=== PATIENT | female | born 1960 | race Hispanic/Latino ===

== ENCOUNTER 2018-07-16 20:18 | Emergency (ER) | payer OTHER ==
[2018-07-16] MEDS ORDERED: NACL 0.9% 1000 ML 1,000 ML IV ONE (20:43)
[2018-07-16 21:15] LABS: Hematocrit 40.4 % (30.3-42.9); Hemoglobin 13.8 gm/dl (10.1-14.3); Mean Corpuscular HGB Conc 34 % (30-34); Mean Corpuscular Volume 86 fl (79-97); Platelet Count 323 K/mm3 (140-440); Red Blood Count 4.68 M/mm3 (3.65-5.03); Red Cell Distribution Width 13.5 % (13.2-15.2)
[2018-07-16 22:03] LABS: Albumin 4.3 g/dL (3.9-5); BUN/Creatinine Ratio 26; Blood Urea Nitrogen 13 mg/dL (7-17); Calcium 9.1 mg/dL (8.4-10.2); Hemolysis Index 3
[2018-07-16 22:06] LABS: Alanine Aminotransferase < 5 units/L (7-56)
[2018-07-16 22:32] LABS: Basophils % (Manual) 0 % (0.0-1.8); Total Cells Counted 100
[2018-07-16 22:33] LABS: Anisocytosis 1+
[2018-07-16 22:35] LABS: Platelet Estimate Consistent w Auto
[2018-07-17] MEDS ORDERED: TORADOL IV ONE (00:21)
[2018-07-17] MEDS ORDERED: NACL 0.9% 1000 ML 1,000 ML IV ONE (00:22)
[2018-07-17] MEDS ORDERED: ZOFRAN IV ONE (00:22)
--- NOTE | 2018-07-17 00:25 | Emergency Department Report ---
ED Abdominal Pain HPI - General Chief Complaint: Nausea/Vomiting/Diarrhea Stated Complaint: VOMITING/NAUSEA Time Seen by Provider: 07/16/18 23:42 Source: patient, family Mode of arrival: Wheelchair Limitations: No Limitations - History of Present Illness Initial Comments: Mrs. Easton is a very pleasant 58 yo female with history of fibromyalgia, restless leg syndrome, endometriosis, hypoglycemia, mitral valve prolapse, irregular heart beat who presents with nausea vomiting diarrhea since 12 PM this afternoon. Prior to her illness today, she ate a steak biscuit brought to her from outside restaurant. She had copious innumerous bouts of vomiting. She had at least 4 bouts of diarrhea. She denies any current pain. However the last several days she's had right lower quadrant abdominal pain. She has history of tubal ligation. She has a history of laparoscopic surgery for endometriosis. She denies fever. She has chills. MD Complaint: abdominal pain -: Gradual, days(s) (several) Location: RLQ Radiation: none Severity: mild Severity scale (0 -10): 4 Quality: dull Consistency: intermittent Improves With: nothing Worsens With: nothing Context: possible food poisoning Associated Symptoms: nausea, vomiting, diarrhea - Related Data Previous Rx's Medication Instructions Recorded Last Taken Type Ciprofloxacin HCl [Cipro] 500 mg PO BID 3 Days #6 tablet 07/17/18 Unknown Rx Promethazine [Phenergan TAB] 25 mg PO Q6HR PRN #10 tab 07/17/18 Unknown Rx Allergies Allergy/AdvReac Type Severity Reaction Status Date / Time Penicillins Allergy Hives Verified 07/16/18 20:41 phenytoin [From Dilantin] Allergy Itching Verified 07/16/18 20:42 prednisone Allergy Hives Verified 07/16/18 20:43 streptomycin Allergy Hives Verified 07/16/18 20:42 Sulfa (Sulfonamide Allergy Itching Verified 07/16/18 20:42 Antibiotics) ED Review of Systems ROS: Stated complaint: VOMITING/NAUSEA Other details as noted in HPI Comment: All other systems reviewed and negative Constitutional: malaise Gastrointestinal: abdominal pain, nausea, vomiting, diarrhea ED Past Medical Hx - Past Medical History Previous Medical History?: Yes Hx GERD: Yes Hx of Cancer: Yes (Basal Cell) Additional medical history: Myotonia, Neuropathy, Muscular Dystrophy,Fibrimyalgia, Restless Leg symdrome,. Endometriosis,Hypoglycemia, MVP, Irregular Heart beat - Surgical History Past Surgical History?: Yes Additional Surgical History: Back, Left rib removal, Tubal Ligation - Social History Smoking Status: Never Smoker Substance Use Type: None - Medications Home Medications: Home Medications Medication Instructions Recorded Confirmed Last Taken Type Ciprofloxacin HCl [Cipro] 500 mg PO BID 3 Days #6 tablet 07/17/18 Unknown Rx Promethazine [Phenergan TAB] 25 mg PO Q6HR PRN #10 tab 07/17/18 Unknown Rx ED Physical Exam - General Limitations: No Limitations General appearance: alert, in no apparent distress, other (appears ill but nontoxic) - Head Head exam: Present: atraumatic, normocephalic - Eye Eye exam: Present: normal appearance - ENT ENT exam: Present: mucous membranes moist - Neck Neck exam: Present: normal inspection, full ROM. Absent: tenderness, meningismus - Respiratory Respiratory exam: Present: normal lung sounds bilaterally. Absent: respiratory distress, wheezes, rales, rhonchi - Cardiovascular Cardiovascular Exam: Present: regular rate, normal rhythm, normal heart sounds. Absent: systolic murmur, diastolic murmur, rubs, gallop - GI/Abdominal GI/Abdominal exam: Present: soft, normal bowel sounds. Absent: distended, tenderness, guarding, rebound - Extremities Exam Extremities exam: Present: normal inspection - Back Exam Back exam: Present: normal inspection - Neurological Exam Neurological exam: Present: alert, oriented X3 - Psychiatric Psychiatric exam: Present: normal affect, normal mood - Skin Skin exam: Present: warm, dry, intact, normal color. Absent: rash ED Course Vital Signs 07/16/18 07/16/18 07/16/18 20:33 21:41 21:45 Temperature 97.4 F L Pulse Rate 100 H 91 H 83 Respiratory 22 14 11 L Rate Blood Pressure 121/79 142/68 O2 Sat by Pulse 97 92 Oximetry 07/16/18 07/16/18 07/16/18 22:00 22:15 22:31 Temperature Pulse Rate 86 93 H 90 Respiratory 11 L 14 15 Rate Blood Pressure 138/60 138/60 138/60 O2 Sat by Pulse 95 95 95 Oximetry 07/16/18 07/16/18 07/16/18 22:45 23:01 23:11 Temperature Pulse Rate 87 91 H Respiratory 15 22 16 Rate Blood Pressure 138/60 138/60 O2 Sat by Pulse 93 97 Oximetry ED Medical Decision Making - Lab Data Result diagrams: 07/16/18 21:02 07/16/18 21:02 - Radiology Data Radiology results: report reviewed - Medical Decision Making Mrs. Easton presents with n/v/d with elevated WBC. No abdominal tenderness on exam. CT A/P without acute inflammatory process. Normal appendix on CT exam. Clinical impression: bacterial enteritis/gastroenteritis rx: ciprofloxacin, promethazine, She received 2 liters IVF. Given strong return precautions. Critical care attestation.: If time is entered above; I have spent that time in minutes in the direct care of this critically ill patient, excluding procedure time. ED Disposition Clinical Impression: Bacterial enteritis, Stomach flu Disposition: TO HOME OR SELFCARE Is pt being admited?: No Does the pt Need Aspirin: No Condition: Stable Instructions: Gastroenteritis (ED) Prescriptions: Ciprofloxacin HCl [Cipro] 500 mg PO BID 3 Days #6 tablet Promethazine [Phenergan TAB] 25 mg PO Q6HR PRN #10 tab PRN Reason: Nausea Referrals: JOHNY WINTERS MD [Primary Care Provider] - 3-5 Days
--- NOTE | 2018-07-17 01:36 | Cat Scan Report ---
PROCEDURE: CT ABDOMEN PELVIS W CON TECHNIQUE: Computerized axial tomography of the abdomen and pelvis was performed after the IV inject ion of iodinated nonionic contrast. HISTORY: RLQ pain n/v/d COMPARISONS: None . FINDINGS: Visualized lower thorax: No significant abnormality. Liver: Normal size and attenuation. Spleen: Normal size and attenuation. Gallbladder and biliary system: Normal. Pancreas: Normal. Adrenals: Normal. Kidneys: Normal. GI tract: There is no evidence of intestinal obstruction. No ileus or enteritis. The cecum, appendix and colon are normal . Lymph nodes and mesentery: Normal. Vasculature: Moderate atherosclerosis of the aorta and branching vessels. Bladder: Normal. Reproductive organs: Normal. Peritoneum: No free fluid. Musculoskeletal structures: No significant abnormality. Other: None . IMPRESSION: There is no evidence of intestinal or urinary tract obstruction. No ileus or enteritis. The appendix is normal. . This document is electronically signed by Jaylin Power DO., July 17 2018 01:34:07 AM ET
[2018-07-17] MEDS ORDERED: LEVAQUIN PO ONE (01:44)
[2018-07-17 02:04] VITALS: BP 124/61
== END 2018-07-17 02:44 | disposition home or self-care (01) ==
LOC: ED 20:18
DX: A04.9 Bacterial intestinal infection, unspecified (principal); A08.4 Viral intestinal infection, unspecified; K21.9 Gastro-esophageal reflux disease without esophagitis; G62.9 Polyneuropathy, unspecified; I34.1 Nonrheumatic mitral (valve) prolapse; Z98.51 Tubal ligation status; D04.9 Carcinoma in situ of skin, unspecified; Z88.0 Allergy status to penicillin; Z88.1 Allergy status to other antibiotic agents; Z88.2 Allergy status to sulfonamides
CPT/HCPCS: 36415; 74177; 80053; 82962; 83690; 85007; 85025; 96361; 96374; 96375; 99284; J1885; J2405; J7030; Q9967